=== PATIENT | male | born 1990 | race Caucasian/White ===

== ENCOUNTER 2020-11-16 19:47 | Emergency (ER) | payer OTHER ==
[~2020-11-16] VITALS: Ht 182.9 cm; Wt 122.3 kg
[2020-11-17] MEDS ORDERED: CEPH500C PO (06:37)
[2020-11-17] MEDS ORDERED: CEPHALEXIN 500 MG CAP PO ONE (06:40)
[2020-11-17 07:11] VITALS: BP 127/60
== END 2020-11-17 07:12 | disposition home or self-care (01) ==
LOC: M ED 19:47
DX: L03.113 Cellulitis of right upper limb (principal)